=== PATIENT | female | born 1995 | race Caucasian/White ===

== ENCOUNTER 2017-07-10 17:28 | Emergency (ER) | payer BC, MEDICAID ==
[2017-07-10 18:16] VITALS: BP 132/75
--- NOTE | 2017-07-10 19:11 | RAD ---
Indication: Cough and fever. Comparison: November 10, 2014 Technique: Sitting AP and lateral chest views obtained in a wheelchair. Report: Accounting for mild rightward rotation with superimposed soft tissues and normal bronchovascular structures the lungs and pleural spaces are clear. Negative for pneumothorax. The heart, pulmonary vasculature, and mediastinal contours are unremarkable. Negative for free air beneath the diaphragm. IMPRESSION: No evidence for pneumonia. No evidence for acute intrathoracic disease.
[2017-07-10] MEDS ORDERED: Amoxicillin PO (*) 400 MG/5 ML ORAL.SOLN 50 ML BOTTLE PO ONE (19:17)
--- NOTE | 2017-07-10 19:22 | UC ---
Respiratory Complaint HPI - HPI Summary HPI Summary: 21 yo female with CP presents with cough x 3-4 days has some trouble swallowing hx of pneumonia no CP or SOB according to mom had fever today - History of Current Complaint Chief Complaint: UCRespiratory Stated Complaint: COUGH, FEVER Time Seen by Provider: 07/10/17 18:11 Hx Obtained From: Patient, Family/Medical Transcription Radiology - mom Hx Last Menstrual Period: 06/19/17 Onset/Duration: Gradual Onset, Lasting Days Timing: Constant Severity Initially: Mild Severity Currently: Moderate Pain Intensity: 0 Pain Scale Used: 0-10 Numeric Character: Cough: Nonproductive Aggravating Factors: Nothing Associated Signs And Symptoms: Positive: Fever - Allergies/Home Medications Allergies/Adverse Reactions: Allergies Allergy/AdvReac Type Severity Reaction Status Date / Time morphine AdvReac Vomiting Verified 07/10/17 18:17 Home Medications: Home Medications Polyethylene Glycol 3350 [Miralax] 17 gm PO ONCE PRN 07/10/17 [History Confirmed 07/10/17] PMH/Surg Hx/FS Hx/Imm Hx Previously Healthy: Yes - CP Respiratory History: Pneumonia - Surgical History Surgical History: Yes Surgery Procedure, Year, and Place: [place]aclofen pump[place]. arm and bilat leg lengthling X 3 SURGERIES-[place]. tendon lengthenilng[place]. left lower leg titanum kar from a fx. FEEDING AN INFANT- AND REMOVED. TUBES IN HER EARS [place] [place] - Family History Known Family History: Positive: Hypertension - Social History Alcohol Use: None Substance Use Type: None Smoking Status (MU): Never Smoked Tobacco - Immunization History Vaccination Up to Date: Yes Review of Systems Constitutional: Fever Skin: Negative Eyes: Negative ENT: Sore Throat Respiratory: Cough Cardiovascular: Negative Gastrointestinal: Negative Genitourinary: Negative Motor: Negative Neurovascular: Negative Musculoskeletal: Negative Neurological: Negative Psychological: Negative Is Patient Immunocompromised?: No All Other Systems Reviewed And Are Negative: Yes Physical Exam Triage Information Reviewed: Yes Appearance: Well-Appearing, No Pain Distress, Well-Nourished Vital Signs: Initial Vital Signs Temp 99.9 F 07/10/17 18:08 Pulse 108 07/10/17 18:08 Resp 16 07/10/17 18:08 BP 132/75 07/10/17 18:08 Pulse Ox 99 07/10/17 18:08 Vital Signs Reviewed: Yes Eyes: Positive: Conjunctiva Clear ENT: Positive: Pharynx normal. Negative: Nasal congestion, Nasal drainage, Trismus, Muffled voice, Hoarse voice Dental: Positive: Other: - poor dentition Neck: Positive: Supple, Nontender, No Lymphadenopathy Respiratory: Positive: Lungs clear, Normal breath sounds, No respiratory distress, No accessory muscle use Cardiovascular: Positive: RRR Musculoskeletal: Positive: No Edema, ROM Limited @ - all limbs, Other: - in WC/ contactures Neurological: Positive: Alert Psychological Exam: Normal Skin Exam: Normal UC Diagnostic Evaluation - Laboratory O2 Sat by Pulse Oximetry: 99 - normal/not hyhpoxic - Radiology Xray Interpretation: No Acute Changes Radiology Interpretation Completed By: Radiologist Respiratory Course/Dx - Differential Dx/Diagnosis Provider Diagnoses: acute bronchitis Discharge - Sign-Out/Discharge Documenting (check all that apply): Discharge/Admit/Transfer - Discharge Plan Condition: Stable Disposition: HOME Prescriptions: Amoxicillin PO (*) [Amoxicillin 400 MG/5 ML SUSP*] 800 mg PO BID #150 bottle Patient Education Materials: Acute Bronchitis (ED) Referrals: Mery Jimenes MD [Primary Care Provider] - 2 Days Additional Instructions: chest xr was normal recheck for new or worsening symptoms - Billing Disposition and Condition Condition: STABLE Disposition: HOME
== END 2017-07-10 19:33 | disposition home or self-care (01) ==
LOC: UCCORT 17:28
DX: J20.9 Acute bronchitis, unspecified (principal); Z88.5 Allergy status to narcotic agent; Z82.49 Family history of ischemic heart disease and other diseases of the circulatory system
CPT/HCPCS: 71046; 99213; G0463

== ENCOUNTER 2017-07-13 18:48 | Emergency (ER) | payer BC, MEDICAID ==
[2017-07-13 19:39] VITALS: BP 115/73
[2017-07-13] MEDS ORDERED: Amoxicillin/Clavulanate SUSP* 400 MG/5 ML BTL PO ONE (20:38)
--- NOTE | 2017-07-13 20:45 | UC ---
Respiratory Complaint HPI - HPI Summary HPI Summary: 21 yo female seen her on 07/10 with 4 day hx of cough and fever CXR (-) started on amox cough worse fever today has CP - History of Current Complaint Chief Complaint: UCGeneralIllness Stated Complaint: FEVER/COUGH Time Seen by Provider: 07/13/17 20:01 Hx Obtained From: Patient Hx Last Menstrual Period: 06/19/17 Onset/Duration: Gradual Onset, Lasting Days Timing: Constant Severity Initially: Mild Severity Currently: Moderate Pain Intensity: 0 Pain Scale Used: 0-10 Numeric Character: Cough: Nonproductive Aggravating Factors: Nothing Alleviating Factors: Nothing Associated Signs And Symptoms: Positive: Fever - Allergies/Home Medications Allergies/Adverse Reactions: Allergies Allergy/AdvReac Type Severity Reaction Status Date / Time morphine AdvReac Vomiting Verified 07/10/17 18:17 Home Medications: Home Medications Acetaminophen [Tylenol] 650 mg PO Q8HR 07/13/17 [History Confirmed 07/13/17] PMH/Surg Hx/FS Hx/Imm Hx Previously Healthy: Yes - CP Respiratory History: Bronchitis, Pneumonia - Surgical History Surgical History: Yes Surgery Procedure, Year, and Place: baclofen pump[place]. arm and bilat leg lengthling X 3 SURGERIES-[place]. tendon lengthenilng-[facility]. left lower leg titanum kar from a fx. FEEDING AN INFANT- AND REMOVED. TUBES IN HER EARS A CHILD-[facility] – [place] - Family History Known Family History: Positive: Hypertension - Social History Alcohol Use: None Substance Use Type: None Smoking Status (MU): Never Smoked Tobacco - Immunization History Vaccination Up to Date: Yes Review of Systems Constitutional: Fever Skin: Negative Eyes: Negative ENT: Negative Respiratory: Cough Cardiovascular: Negative Gastrointestinal: Negative Genitourinary: Negative Motor: Negative Neurovascular: Negative Musculoskeletal: Negative Neurological: Negative Psychological: Negative Is Patient Immunocompromised?: No All Other Systems Reviewed And Are Negative: Yes Physical Exam Triage Information Reviewed: Yes Appearance: Well-Appearing, No Pain Distress, Well-Nourished Vital Signs: Initial Vital Signs Temp 99.6 F 07/13/17 19:31 Pulse 100 07/13/17 19:31 Resp 18 07/13/17 19:31 BP 115/73 07/13/17 19:31 Pulse Ox 99 07/13/17 19:31 Vital Signs Reviewed: Yes Eyes: Positive: Conjunctiva Clear ENT: Positive: Hearing grossly normal, Uvula midline. Negative: Pharynx normal , Pharyngeal erythema, Nasal congestion, Nasal drainage, Tonsillar swelling, Tonsillar exudate, Trismus, Muffled voice, Hoarse voice, Sinus tenderness Neck: Positive: Supple, Nontender, No Lymphadenopathy Respiratory: Positive: Chest non-tender, Lungs clear, Normal breath sounds, No respiratory distress, No accessory muscle use Cardiovascular: Positive: RRR, No Murmur UC Diagnostic Evaluation - Laboratory O2 Sat by Pulse Oximetry: 99 - normal/not hypoxic Respiratory Course/Dx - Differential Dx/Diagnosis Provider Diagnoses: bronchitis Discharge - Sign-Out/Discharge Documenting (check all that apply): Discharge/Admit/Transfer - Discharge Plan Condition: Stable Disposition: HOME Prescriptions: Amoxicillin/Clavulanate SUSP* [Augmentin SUSP*] 800 mg PO BID #70 btl Referrals: Mery Jimenes MD [Primary Care Provider] - 2 Days Additional Instructions: 10 ml of augmentin twice daily for 7 days stop amoxicillin recheck for new or worsening symptoms - Billing Disposition and Condition Condition: STABLE Disposition: Home
== END 2017-07-13 20:54 | disposition home or self-care (01) ==
LOC: UCCORT 18:48
DX: J40 Bronchitis, not specified as acute or chronic (principal); Z88.5 Allergy status to narcotic agent
CPT/HCPCS: 99213; G0463

== ENCOUNTER 2018-04-27 16:11 | Emergency (ER) | payer BC, MEDICAID ==
[2018-04-27 16:48] VITALS: BP 141/51
--- NOTE | 2018-04-27 17:40 | ED ---
Lower Extremity - HPI Summary HPI Summary: 22 yr old female with right 1st MP dorsal area with redness and swelling. She has had the swelling for a few weeks, but the redness for this week with drainage over the past 3 days. No fever or chills. The patient is scheduled for tendon release surgery on the same foot in June. No fever or chills. The patient has MR, and CP as a baseline. - History of Current Complaint Chief Complaint: Laura Stated Complaint: SKIN CONCERN(TOP OF LEFT FOOT) Time Seen by Provider: 04/27/18 16:56 Hx Last Menstrual Period: "A MONTH AGO" Pain Intensity: 0 - Allergies/Home Medications Allergies/Adverse Reactions: Allergies Allergy/AdvReac Type Severity Reaction Status Date / Time morphine AdvReac Vomiting Verified 04/27/18 16:41 Home Medications: Home Medications Cholecalciferol TAB* [Vitamin D TAB*] 1 tab DAILY 04/27/18 [History Confirmed ] PMH/Surg Hx/FS Hx/Imm Hx Previously Healthy: Yes GI History: Reports: Other GI Disorders - BOWELS SLOW Musculoskeletal History: Reports: Other Musculoskeletal History - MUSCLE SPASMS Sensory History: Reports: Hx Contacts or Glasses - 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 arm and bilat leg lengthling X 3 SURGERIES-[place]. tendon lengthenilng[place]. left lower leg titanum kar from a fx. FEEDING AN INFANT- AND REMOVED. TUBES IN HER EARS [place] [place] Anesthesia Reactions: Yes - VOMITING-HELPED WHEN PREMEDICATED PRIOR TO GOING INTO SURGERY Infectious Disease History: No Infectious Disease History: Denies: Traveled Outside the [place] in Last 30 Days - Family History Known Family History: Positive: Hypertension - Social History Occupation: Disabled Lives: With Family Alcohol Use: None Substance Use Type: Reports: None Smoking Status (MU): Never Smoked Tobacco Review of Systems Constitutional: Negative Positive: Other - right foot 1st MP joint area redness swelling. All Other Systems Reviewed And Are Negative: Yes Physical Exam Triage Information Reviewed: Yes Vital Signs On Initial Exam: Initial Vitals Temp Pulse Resp BP Pulse Ox 99.2 F 90 21 141/51 100 04/27/18 16:43 04/27/18 16:43 04/27/18 16:43 04/27/18 16:43 04/27/18 16:43 Vital Signs Reviewed: Yes Appearance: Positive: Well-Appearing, No Pain Distress Skin: Positive: Other - redness and erythema right 1st MP area dorsum with swelling. No active drainage now. Head/Face: Positive: Normal Head/Face Inspection Eyes: Positive: EOMI Neck: Positive: Supple, Nontender Respiratory/Lung Sounds: Positive: Clear to Auscultation, Breath Sounds Present Cardiovascular: Positive: RRR. Negative: Murmur Abdomen Description: Negative: Distended Musculoskeletal: Positive: Strength/ROM Intact Neurological: Positive: Alert, Oriented to Person Place, Time - at baseline Psychiatric: Positive: Normal Diagnostics - Vital Signs Vital Signs Temp Pulse Resp BP Pulse Ox 04/27/18 16:43 99.2 F 90 21 141/51 100 - Laboratory Lab Statement: Any lab studies that have been ordered have been reviewed, and results considered in the medical decision making process. - Radiology right foot Radiology Interpretation Completed By: Radiologist - STS no fx no osteo. Lower Extremity Course/Dx - Course Course Of Treatment: 22 yr old with Soft tissue infection. Rx with bactrim DS. FU with PMD. - Diagnoses Provider Diagnoses: Cellulitis of foot, right, Hypertension Discharge - Sign-Out/Discharge Documenting (check all that apply): Patient Departure All imaging exams completed and their final reports reviewed: No Studies - Discharge Plan Condition: Good Disposition: HOME Prescriptions: Sulfamethox/Trimethoprim DS* [Bactrim DS 800/160 TAB*] 1 tab PO BID #20 tab Patient Education Materials: Cellulitis (ED), Hypertension (ED) Referrals: Mery Jimenes MD [Primary Care Provider] - 2 Days - Billing Disposition and Condition Condition: GOOD Disposition: Home
== END 2018-04-27 18:25 | disposition home or self-care (01) ==
LOC: UCCORT 16:11
DX: L03.115 Cellulitis of right lower limb (principal); I10 Essential (primary) hypertension; G80.9 Cerebral palsy, unspecified; F41.9 Anxiety disorder, unspecified; Z88.5 Allergy status to narcotic agent
CPT/HCPCS: 99212; G0463